=== PATIENT | female | born 1930 | race Caucasian/White ===

== ENCOUNTER → 2016-10-03 | Outpatient (CLI) | payer BC ==
[2016-10-02 18:01] LABS: BASO % 0.3 %; BASO ABS # 0.02 K/uL (0-0.2); COMPLETE YES; EOS % 0.3 %; HEMATOCRIT 44.4 % (37-47); IG% 0.2 %; LYMPH % 23.9 %; LYMPH ABS # 1.58 K/uL (1.2-3.4); MEAN CELL VOLUME 90.6 fL (80-100); MEAN CORPUSCULAR HEMOGLOBIN 30.4 pg (25-34); MEAN CORPUSCULAR HGB CONC 33.6 g/dl (32-36); MEAN PLATELET VOLUME 10.9 fL (7.4-10.4); MONO % 7.3 %; PLATELET COUNT 220 K/uL (130-400); WHITE BLOOD COUNT 6.61 K/uL (4.8-10.8)
[2016-10-02 18:35] LABS: ALT/SGPT 21 U/L (12-78); AST/SGOT 31 U/L (15-37); BLOOD UREA NITROGEN 26 mg/dl (7-18); BUN/CREATININE RATIO 18.2 (10-20); CARBON DIOXIDE 31 mmol/L (21-32); CHLORIDE 104 mmol/L (98-107); CHOLESTEROL 192 mg/dl (0-200); GLUCOSE 103 mg/dl (70-99); SODIUM 140 mmol/L (136-145)
[2016-10-02 18:40] LABS: CHOLESTEROL/HDL RATIO 2.3; HDL CHOLESTEROL 83 mg/dl; LDL CHOLESTEROL CALCULATED 87 mg/dl; TRIGLYCERIDES 112 mg/dl (0-150); VERY LOW DENSITY LIPOPROT CALC 22 mg/dl
== END ==
LOC: C.LABMFLN 07:50
PROVIDERS: ATTEND Family Medicine
DX: I48.91 Unspecified atrial fibrillation (principal); E78.5 Hyperlipidemia, unspecified

== ENCOUNTER → 2017-04-02 | Outpatient (CLI) | payer BC ==
[2017-04-02 18:28] LABS: ALT/SGPT 18 U/L (12-78); BLOOD UREA NITROGEN 19 mg/dl (7-18); BUN/CREATININE RATIO 15.7 (10-20); CALCIUM 9.8 mg/dl (8.5-10.1); CARBON DIOXIDE 30 mmol/L (21-32); CHLORIDE 101 mmol/L (98-107); CHOLESTEROL 171 mg/dl (0-200); CREATININE 1.22 mg/dl (0.60-1.20); GLUCOSE 87 mg/dl (70-99); MAGNESIUM 2.5 mg/dl (1.8-2.4); POTASSIUM 3.6 mmol/L (3.5-5.1); SODIUM 139 mmol/L (136-145)
[2017-04-02 18:33] LABS: ALB/GLOB RATIO 1.3 (0.9-2); ALKALINE PHOSPHATASE 83 U/L (45-117); AST/SGOT 27 U/L (15-37); CHOLESTEROL/HDL RATIO 2.3; HDL CHOLESTEROL 74 mg/dl; LDL CHOLESTEROL CALCULATED 75 mg/dl; TRIGLYCERIDES 112 mg/dl (0-150); VERY LOW DENSITY LIPOPROT CALC 22 mg/dl
== END | disposition home or self-care (01) ==
LOC: C.LABMFLN 14:20
PROVIDERS: ATTEND Family Medicine
DX: I48.91 Unspecified atrial fibrillation (principal); I10 Essential (primary) hypertension; E78.5 Hyperlipidemia, unspecified

== ENCOUNTER 2017-06-20 15:43 | Emergency (ER) | payer BC ==
[~2017-06-20] VITALS: Ht 157.5 cm; Wt 80.3 kg
[2017-06-20 15:45] VITALS: TEMP 36.6; Ht 157.5 cm; Wt 80.3 kg
--- NOTE | 2017-06-20 17:24 | EMERGENCY ROOM VISIT NOTE ---
History Report prepared by Olinda: Gricelda Paulson Under the Supervision of: Dr. Justice Cuevas M.D. 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 Positive recent vomiting, diarrhea and abdominal pain. Negative urinary symptoms or recent falls. This afternoon she was supposed to have a PT/INR drawn, but her home health nurse was unable to do it, so she went to her doctors office, Dr. Munguia with [facility]. She states they called her afterwards and told her her INR was 9, and they "usually don't like it to be higher than 2.5", so she was told to come to the ED. She has not taken her Coumadin since 1600 yesterday. Source of History: patient Onset: earlier today Position: other (global) Timing: constant Associated Symptoms: + nausea, + vomiting, + abdominal pain, + diarrhea, No urinary symptoms Review of Systems See HPI for pertinent positives and negatives. A total of ten systems were reviewed and were otherwise negative. Past Medical & Surgical Medical Problems: (1) Hypertension Surgical Problems: (1) H/O mitral valve replacement Social History Smoking Status: Never Smoker Alcohol Use: none Drug Use: none Marital Status: Housing Status: lives with family Occupation Status: retired Current/Historical Medications Scheduled Hydrochlorothiazide (Hydrochlorothiazide), 1 TAB PO DAILY Montelukast Sodium (Montelukast Sodium), 1 TAB PO DAILY Simvastatin (Zocor), 20 MG PO QPM Warfarin Sodium (Coumadin), 4 MG PO DAILY Scheduled PRN Clorazepate Dipotassium (Tranxene-T ), 3.75 MG PO BID PRN for Meclizine Hcl (Meclizine Hcl), 1 TAB PO TID PRN for Dizziness or Vertigo Polyethylene Glycol 3350 (Miralax), 17 GM PO DAILY PRN for Constipation [Proair Hfa 108], 2 PUFFS INH Q4 PRN for SOB/Wheezing Allergies Coded Allergies: Azithromycin (Verified Allergy, Unknown, UNKNOWN, 06/20/17) INFO FROM [facility] Cephalexin (Verified Allergy, Unknown, UNKNOWN, 06/20/17) INFO [facility] Citalopram (Verified Allergy, Unknown, UNKNOWN, 06/20/17) INFO [facility] Codeine (Verified Allergy, Unknown, UNKNOWN, 06/20/17) [facility] Pseudoephedrine (Verified Allergy, Unknown, UNKNOWN, 06/20/17) INFO [facility] Physical Exam Vital Signs Date Time Temp Pulse Resp B/P (MAP) Pulse Ox O2 Delivery O2 Flow Rate FiO2 06/20/17 19:03 71 18 165/97 97 06/20/17 17:46 39 06/20/17 17:33 99 Room Air 06/20/17 17:19 70 18 171/95 99 Room Air 06/20/17 15:45 36.6 75 16 189/68 95 Room Air Physical Exam GENERAL: Awake, alert, well-appearing, appears stated age, NAD HENT: Normocephalic, atraumatic. EYES: Normal conjunctiva. Sclera non-icteric. NECK: Supple. No nuchal rigidity. FROM. RESPIRATORY: CTAB, no rhonchi, wheezing, crackles CARDIAC: Regular rate, irregular rhythm, no MRG ABDOMEN: Soft, NTND, BS+ MSK: No chest wall TTP, no LE edema NEURO: GCS 15, CN 2-12 intact, moves all 4s on command SKIN: No rash or jaundice noted. No petechiae, purpura or bruising. Medical Decision & Procedures Medications Administered Medications (Trade) Dose Ordered Sig/Debi Route Start Time Stop Time Status Last Admin Dose Admin Phytonadione (Mephyton Tab) 2.5 mg NOW STAT PO 06/20/17 17:29 06/20/17 17:30 DC 06/20/17 17:51 2.5 MG ECG Indication: other (abnormal labs) Rate (beats per minute): 41 Rhythm: other (3rd degree heart block) Findings: other (irregular conduction) Change: This patients EKG was interpreted by me. ED Course 171: The patient was evaluated in room B9. A complete history and physical exam was performed. 172: Case Management gave me the patients lab work from today. Upon review of labs from Dr. Richard office, the patients INR was 9.5 today in the office. 1729: Mephyton Tab 2.5 mg PO. 1741: I reevaluated the patient. She is resting comfortably. 1855: I discussed the patients case with [facility]. He states if she is asymptomatic, most likely nothing would be clinically necessary. 1899: Nursing informed me the patient signed out against medical advice. 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 Triage Nursing notes reviewed. The patient's presentation and history were concerning for abnormal lab work. Differential diagnoses considered include medication side effect and change in diet. Patient was seen and evaluated the bedside. Patient had presented to given the patient's concern for an elevated INR. I did have our residential case manager obtain the blood work that was completed. Patient did have an INR of 9.5. Patient was told to skip her scheduled dose today and was given a by mouth dose of vitamin K. Patient did have some bradycardia that was noted by nurse an EKG was obtained. Believe that this may have been some sort of a flutter with variable slow conduction. Patient's ventricular rate was low as the 40s. Did discuss the case with the on-call copra sampler. Patient does not take any A-V notable blockers. He stated nothing that likely would need to be done right now. The patient did leave prior to obtaining this consult the patient did leave AMA. Patient did state that she will follow up with primary care physician tomorrow. She was told that she should follow-up in order to obtain a repeat INR. Medication Reconcilliation Current Medication List: was personally reviewed by me Blood Pressure Screening Patient's blood pressure: Elevated blood pressure Blood pressure disposition: Referred to PCP Consults Time Called: 1729 Consulting Physician: ERAN [facility] Returned Call: 1855 I discussed the patients case with ERAN [facility]. He states if she is asymptomatic, most likely nothing would be clinically necessary. Likely a flutter with slow ventricular rate. Impression Primary Impression: Elevated INR Additional Impression: Atrial flutter Scribe Attestation The scribe's documentation has been prepared under my direction and personally reviewed by me in its entirety. I confirm that the note above accurately reflects all work, treatment, procedures, and medical decision making performed by me. Departure Information Dispostion Against Medical Advice Referrals Vignesh Munguia M.D. (PCP) Patient Instructions My [facility] Problem Qualifiers Additional Impression: Atrial flutter Atrial flutter type: unspecified Qualified Codes: I48.92 - Unspecified atrial flutter
[2017-06-20] MEDS ORDERED: PHYTONADIONE 5 MG TAB PO STA (17:29)
[2017-06-20 17:33] VITALS: O2SAT 99
[2017-06-20] MEDS ORDERED: POLY335019 PO (18:06)
[2017-06-20] MEDS ORDERED: MONT1TAB5 PO (18:06)
[2017-06-20] MEDS ORDERED: SIMV20TA2 PO (18:06)
[2017-06-20] MEDS ORDERED: HYDR12.55 PO (18:06)
[2017-06-20] MEDS ORDERED: PROAIR HFA 108 INH (18:06)
[2017-06-20] MEDS ORDERED: CLOR3.7515 PO (18:06)
[2017-06-20] MEDS ORDERED: WARF4TAB PO (18:06)
[2017-06-20] MEDS ORDERED: MECL1TAB42 PO (18:06)
[2017-06-20 19:03] VITALS: BP 165/97; PULSE 71; O2SAT 97
== END 2017-06-20 19:04 | disposition left against medical advice (07) ==
LOC: C.EDB 15:43
DX: I48.92 Unspecified atrial flutter (principal); R79.9 Abnormal finding of blood chemistry, unspecified; I10 Essential (primary) hypertension

== ENCOUNTER → 2017-06-25 | Outpatient (CLI) | payer BC ==
[~2017-06-25] MED LIST: CLOR3.7515 PO; HYDR12.55 PO; MECL1TAB42 PO; MONT1TAB5 PO; POLY335019 PO; PROAIR HFA 108 INH; SIMV20TA2 PO; WARF4TAB PO
== END | disposition home or self-care (01) ==
LOC: C.LABMFLN 09:53
PROVIDERS: ATTEND Family Medicine
DX: R30.0 Dysuria (principal)